=== PATIENT | female | born 1950 | race Caucasian/White ===

== ENCOUNTER 2018-01-14 08:58 | Emergency (ER) | payer MEDICARE, MEDICAID ==
[~2018-01-14] VITALS: Ht 165.1 cm; Wt 82.2 kg
[~2018-01-14 08:58] MED LIST: ASPI81TA52 PO; ATOR10TA87 PO; CALC600T2 PO; CAR30T PO; DILT240C90 PO; ESOM40CA PO; HUM7525 SQ; LANTUS SQ; LANTUS SUBCUT; LEVO50TA67 PO; LISI-600 PO; METF1000 PO; NITR100C6 PO; OXYB5TAB29 PO; PANT-47 PO; PHEN-716 PO
[2018-01-14] MEDS ORDERED: CETI-102 PO (10:19)
[2018-01-14] MEDS ORDERED: BENZ-16 PO (10:19)
[2018-01-14 10:26] VITALS: BP 157/97
== END 2018-01-14 10:28 | disposition home or self-care (01) ==
LOC: ER 08:58
DX: J20.9 Acute bronchitis, unspecified (principal); E78.00 Pure hypercholesterolemia, unspecified; I10 Essential (primary) hypertension; K21.9 Gastro-esophageal reflux disease without esophagitis; E11.9 Type 2 diabetes mellitus without complications; E03.9 Hypothyroidism, unspecified; G89.29 Other chronic pain; Z98.51 Tubal ligation status; Z87.891 Personal history of nicotine dependence; Z56.0 Unemployment, unspecified; Z79.4 Long term (current) use of insulin; Z79.82 Long term (current) use of aspirin
CPT/HCPCS: 71046; 99284

== ENCOUNTER 2018-03-01 04:46 | Outpatient (CLI) | payer MEDICARE, MEDICAID ==
[~2018-03-01 04:46] MED LIST changes: +CETI-102 PO
== END 2018-03-01 23:59 | disposition home or self-care (01) ==
LOC: DIABETIC 04:46
PROVIDERS: ATTEND Family Medicine
DX: E11.65 Type 2 diabetes mellitus with hyperglycemia (principal); I10 Essential (primary) hypertension; K21.9 Gastro-esophageal reflux disease without esophagitis; Z98.890 Other specified postprocedural states
CPT/HCPCS: G0108

== ENCOUNTER 2018-03-28 09:28 | Emergency (ER) | payer MEDICARE, MEDICAID ==
[~2018-03-28] VITALS: Ht 162.6 cm; Wt 92.0 kg
[2018-03-28 09:34] VITALS: BP 150/71
== END 2018-03-28 10:48 | disposition home or self-care (01) ==
LOC: ER 09:28
DX: S93.402A Sprain of unspecified ligament of left ankle, initial encounter (principal); I10 Essential (primary) hypertension; K21.9 Gastro-esophageal reflux disease without esophagitis; E11.9 Type 2 diabetes mellitus without complications; E03.9 Hypothyroidism, unspecified; G89.29 Other chronic pain; Z90.710 Acquired absence of both cervix and uterus; Z98.51 Tubal ligation status; Z56.0 Unemployment, unspecified; Z79.4 Long term (current) use of insulin; E78.00 Pure hypercholesterolemia, unspecified; Z79.82 Long term (current) use of aspirin; Z79.899 Other long term (current) drug therapy; W22.8XXA Striking against or struck by other objects, initial encounter; Y93.01 Activity, walking, marching and hiking; Y92.89 Other specified places as the place of occurrence of the external cause; Y99.8 Other external cause status
CPT/HCPCS: 73610; 99284

== ENCOUNTER 2018-07-28 08:59 | Emergency (ER) | payer MEDICARE, MEDICAID ==
[~2018-07-28] VITALS: Ht 565.3 cm; Wt 80.0 kg
[2018-07-28 09:57] LABS: CLARITY,URINE CLOUDY (Clear); COLOR,URINE YELLOW (Yellow); GLUCOSE, URINE 100 mg/dl (Neg); KETONES,URINE TRACE mg/dl (Neg); LEUKOCYTE ESTERASE ,URINE SMALL (Neg); NITRITES, URINE NEGATIVE (Neg); OCCULT BLOOD,URINE NEGATIVE (Neg); PH,URINE 5.5 (4.8-8.0); PROTEIN,URINE NEGATIVE (Neg); UROBILINOGEN,URINE 0.2 E.U/dL (0.2-1.0)
[2018-07-28 10:06] LABS: BACTERIA,URINE 3+ /HPF (Neg); MUCUS STRANDS FEW /LPF (Neg); SQUAMOUS EPITHELIAL CELL,UR MANY /LPF (FEW); UA COLLECTION TYPE CLN CATCH MIDSTREAM
[2018-07-28 10:09] LABS: RBC,URINE 0-2 /HPF (0-2); WBC,URINE 20-30 /HPF (0-4); YEAST FEW /HPF (NEGATIVE)
[2018-07-28] MEDS ORDERED: NITR100C6 PO (10:35)
[2018-07-28 10:57] VITALS: BP 120/80
== END 2018-07-28 11:01 | disposition home or self-care (01) ==
LOC: ER 09:00
DX: N39.0 Urinary tract infection, site not specified (principal); E78.00 Pure hypercholesterolemia, unspecified; I10 Essential (primary) hypertension; K21.9 Gastro-esophageal reflux disease without esophagitis; E11.9 Type 2 diabetes mellitus without complications; E03.9 Hypothyroidism, unspecified; G89.29 Other chronic pain; Z90.710 Acquired absence of both cervix and uterus; Z98.51 Tubal ligation status; Z98.890 Other specified postprocedural states; Z56.0 Unemployment, unspecified; Z79.82 Long term (current) use of aspirin; Z79.4 Long term (current) use of insulin; Z79.899 Other long term (current) drug therapy
CPT/HCPCS: 81001; 99283

== ENCOUNTER 2018-10-19 00:46 | Outpatient (CLI) | payer MEDICARE, MEDICAID | END 2018-10-19 23:59 | disposition home or self-care (01) | LOC: DIABETIC 00:46 | PROVIDERS: ATTEND Family Medicine | DX: E11.65 Type 2 diabetes mellitus with hyperglycemia (principal); I10 Essential (primary) hypertension; K21.9 Gastro-esophageal reflux disease without esophagitis; Z79.82 Long term (current) use of aspirin; Z79.4 Long term (current) use of insulin; Z79.84 Long term (current) use of oral hypoglycemic drugs | CPT/HCPCS: G0108 ==

== ENCOUNTER 2019-01-11 08:25 | Emergency (ER) | payer MEDICARE, MEDICAID ==
[~2019-01-11] VITALS: Ht 165.1 cm; Wt 91.2 kg
[2019-01-11 09:08] VITALS: BP 168/107
--- NOTE | 2019-01-11 09:09 | NUR ---
AMBULATORY TO ER #1 WITH C/O FLANK PAIN, FREQUENCY, BURNING ON URINATION X 3 DAYS. HX A-FIB, DIABETES, HTN, GERD.
[2019-01-11 09:14] LABS: CLARITY,URINE SLIGHTLY CLOUDY (Clear); COLOR,URINE YELLOW (Yellow); GLUCOSE, URINE 500 mg/dl (Neg); KETONES,URINE NEGATIVE (Neg); LEUKOCYTE ESTERASE ,URINE MODERATE (Neg); NITRITES, URINE POSITIVE (Neg); OCCULT BLOOD,URINE TRACE-LYSED (Neg); PH,URINE 5.5 (4.8-8.0); PROTEIN,URINE NEGATIVE (Neg); UROBILINOGEN,URINE 0.2 E.U/dL (0.2-1.0)
[2019-01-11 09:16] LABS: UA COLLECTION TYPE CLN CATCH MIDSTREAM
[2019-01-11 09:19] LABS: BACTERIA,URINE 4+ /HPF (Neg); RBC,URINE 0-2 /HPF (0-2); SQUAMOUS EPITHELIAL CELL,UR MODERATE /LPF (FEW); WBC CLUMPS,URINE FEW /HPF (NEGATIVE); WBC,URINE TNTC /HPF (0-4)
[2019-01-11] MEDS ORDERED: BACDS PO (09:26)
--- NOTE | 2019-01-11 09:54 | NUR ---
prescription for Bactrim/septra given. patient states that Bactrim/septra will not work. provider notified.
== END 2019-01-11 10:06 | disposition home or self-care (01) ==
LOC: ER 08:26
DX: N39.0 Urinary tract infection, site not specified (principal); E78.00 Pure hypercholesterolemia, unspecified; I10 Essential (primary) hypertension; K21.9 Gastro-esophageal reflux disease without esophagitis; E11.9 Type 2 diabetes mellitus without complications; E03.9 Hypothyroidism, unspecified; G89.29 Other chronic pain; Z90.710 Acquired absence of both cervix and uterus; Z56.0 Unemployment, unspecified; Z98.51 Tubal ligation status; Z79.82 Long term (current) use of aspirin; Z79.4 Long term (current) use of insulin; Z79.84 Long term (current) use of oral hypoglycemic drugs; Z79.899 Other long term (current) drug therapy; Z87.440 Personal history of urinary (tract) infections
CPT/HCPCS: 81001; 87077; 87088; 87186; 99284

== ENCOUNTER 2019-01-18 02:28 | Outpatient (CLI) | payer MEDICARE, MEDICAID ==
[~2019-01-18 02:28] MED LIST changes: +BACDS PO
[2019-01-18] MEDS ORDERED: MIRA50TA PO (13:51)
[2019-01-18] MEDS ORDERED: DILT180C66 PO (13:51)
[2019-01-18] MEDS ORDERED: NITR0.4T48 SL (13:54)
[2019-01-18] MEDS ORDERED: LIRA0.6P2 SQ (13:54)
[2019-01-18] MEDS ORDERED: APIX5TAB3 PO (13:54)
== END 2019-01-18 23:59 | disposition home or self-care (01) ==
LOC: DIABETIC 02:28
PROVIDERS: ATTEND Nurse Practitioner
DX: E11.65 Type 2 diabetes mellitus with hyperglycemia (principal); I10 Essential (primary) hypertension; K21.9 Gastro-esophageal reflux disease without esophagitis; Z79.82 Long term (current) use of aspirin; Z79.4 Long term (current) use of insulin; Z79.84 Long term (current) use of oral hypoglycemic drugs; Z87.891 Personal history of nicotine dependence; Z90.710 Acquired absence of both cervix and uterus
CPT/HCPCS: G0108

== ENCOUNTER 2019-01-18 10:45 | Inpatient (IN) | payer MEDICARE, MEDICAID ==
[~2019-01-18] VITALS: Ht 162.6 cm; Wt 91.4 kg
[2019-01-18 11:16] LABS: BASOPHILS # (AUTO) 0.1 X10'3 (0-0.2); BASOPHILS % (AUTO) 0.5 % (0-1); EOSINOPHILS # (AUTO) 0.2 X10'3 (0-0.9); EOSINOPHILS % (AUTO) 1.2 % (0-6); HEMATOCRIT 34.8 % (35.0-45.0); HEMOGLOBIN 11.1 g/dl (12.0-16.0); LYMPHOCYTES # (AUTO) 4.2 X10'3 (1.1-4.8); LYMPHOCYTES % (AUTO) 34.3 % (21-51); MEAN CORPUSCULAR HEMOGLOBIN 26.4 PG (27.0-31.0); MEAN CORPUSCULAR HGB CONC 31.9 g/dL (33.0-36.5); MEAN CORPUSCULAR VOLUME 82.6 FL (78-98); MEAN PLATELET VOLUME 8.6 FL (7.4-10.4); MONOCYTES # (AUTO) 0.7 X10'3 (0-0.9); MONOCYTES % (AUTO) 5.7 % (2-12); NEUTROPHILS # (AUTO) 7.2 X10'3 (1.8-7.7); NEUTROPHILS % (AUTO) 58.3 % (42-75); PLATELET COUNT 407 X10'3 (140-440); RED BLOOD COUNT 4.22 X10'6 (4.20-5.60); WHITE BLOOD COUNT 12.4 X10'3 (4.5-11.0)
[2019-01-18 11:26] LABS: INR 1.1 INR; PARTIAL THROMBOPLASTIN TIME 27 SECONDS (22-32)
[2019-01-18 11:28] LABS: ALANINE AMINOTRANSFERASE 49 U/L (12-78); ALBUMIN 3.1 G/DL (3.4-5.0); ALBUMIN/GLOBULIN RATIO 0.7 (1.1-1.5); ALKALINE PHOSPHATASE 104 IU/L (46-116); ANION GAP 10 (8-16); ASPARTATE AMINO TRANSFERASE 47 U/L (10-37); BILIRUBIN,TOTAL 0.2 MG/DL (0.1-1.0); BLOOD UREA NITROGEN 14 MG/DL (7-18); BUN/CREATININE RATIO 9.3 (6.6-38.0); CALCIUM 8.5 MG/DL (8.5-10.1); CHLORIDE 100 MMOL/L (99-107); CREATININE 1.51 MG/DL (0.40-0.90); GLUCOSE 336 MG/DL (70-104); POTASSIUM 4.6 MMOL/L (3.5-5.1); SODIUM 131 MMOL/L (135-145); TOTAL CARBON DIOXIDE 20.6 MMOL/L (24-32); TOTAL PROTEIN 7.3 G/DL (6.4-8.2); eGFR 34 ML/MIN
--- NOTE | 2019-01-18 11:45 | NUR ---
ASSUMED CARE OF PT FROM RYAN GARCIA
[2019-01-18] MEDS ORDERED: normal saline 1000ml 1,000 ML IV ONE (11:50)
--- NOTE | 2019-01-18 11:53 | NUR ---
Dr Ramirez at bedside to eval pt, gave verbal order for 2nd EKG, HR 37, pt is receiving 1liter NS w/o to IV left ac, pt is a/o x3, resp even and unlabored, skin p/w/d,
[2019-01-18] MEDS ORDERED: calcium chloride inj. 1,000 MG in normal saline 100ml IV soln 90 ML IV ONE (11:55)
--- NOTE | 2019-01-18 12:06 | NUR ---
[employer] TO BRING MED SOON
--- NOTE | 2019-01-18 12:23 | NUR ---
Dr Ramirez gave verbal order to dc calcium, pt continues to rest quietly on gurmichael
[2019-01-18] MEDS: DOBUTamine-DoBUTrex 500mg/D5W 250 ML IV SCH ×3 (12:36→13:15)
--- NOTE | 2019-01-18 12:43 | NUR ---
dobutamine gtt started at 5mcg/kg/min
--- NOTE | 2019-01-18 13:01 | NUR ---
Dr Camarena gave verbal order to increase dobutamine gtt, HR 36, BP 104/47, pt continues to rest quietly
--- NOTE | 2019-01-18 13:15 | NUR ---
Dr Ramirez aware of HR 37, gave verbal order to increase dobutamine 9mcg/kg/min, Dr Tierney at bedside
--- NOTE | 2019-01-18 13:24 | NUR ---
increased dobutamine gtt to 11mcg/kg/min, HR 38
--- NOTE | 2019-01-18 13:37 | NUR ---
increased dobutamine gtt to 13mcg/kg/min, Dr Ramirez aware, HR remains 39 sinus karine on the monitor
[2019-01-18] MEDS ORDERED: MIRA50TA PO (13:51)
[2019-01-18] MEDS ORDERED: DILT180C66 PO (13:51)
--- NOTE | 2019-01-18 13:53 | NUR ---
Dr Ramirez aware HR 39 to 44, dobutamine gtt remains at 13mcg/kg/min, waiting for hospitalist
[2019-01-18] MEDS ORDERED: NITR0.4T48 SL (13:54)
[2019-01-18] MEDS ORDERED: APIX5TAB3 PO (13:54)
[2019-01-18] MEDS ORDERED: LIRA0.6P2 SQ (13:54)
[2019-01-18] MEDS: normal saline 1000ml 1,000 ML IV SCH (16:02)
[2019-01-18] MEDS ORDERED: potassium Cl 20 mEq SR tablet PO PRN ×2 (16:05)
[2019-01-18] MEDS ORDERED: morphine 4 MG/ML inj SYRINge IV PRN (16:05)
[2019-01-18] MEDS ORDERED: magnesium 2GM in 50ml NS 50 ML IV PRN (16:05)
[2019-01-18] MEDS ORDERED: ondansetron/PF 4mg/2ml inj IV PRN (16:05)
[2019-01-18] MEDS ORDERED: mag hydrox/Alum hydrox/simeth 30ml oral suspension PO PRN (16:05)
[2019-01-18] MEDS ORDERED: acetaminophen 325mg tablet PO PRN (16:05)
[2019-01-18] MEDS ORDERED: potassium Cl 40MEQ/NS 500ml 500 ML IV PRN ×2 (16:05)
[2019-01-18] MEDS ORDERED: magnesium Cl slow-release 64mg tablet PO PRN (16:05)
[2019-01-18] MEDS ORDERED: magnesium 4gm in 100ml NS 100 ML IV PRN (16:05)
[2019-01-18] MEDS ORDERED: glucagon, human recombinant 1mg kit SUBCUT PRN (16:15)
[2019-01-18] MEDS ORDERED: dextrose ORAL solution 15 GM/59 ML bottle PO PRN ×2 (16:15)
[2019-01-18] MEDS ORDERED: MESSAGE TO PHARMACY PO ONE (16:15)
[2019-01-18] MEDS ORDERED: dextrose 50%-water 50ml dispensing syringe IV PRN ×2 (16:15)
[2019-01-18 17:04] LABS: HEMOGLOBIN A1C 8.5 % (4.5-6.2)
--- NOTE | 2019-01-18 17:25 | NUR ---
DR ESPOSITO AWARE HR IN THE 60S, GAVE VERBAL ORDER TO DECREASE DOBUTAMINE TO 10MCG/KG/MIN, PT IS RESTING QUIETLY ON BED, WAITING FOR BED ASSIGNMENT
[2019-01-18] MEDS: insulin Lispro (HumaLOG) vial - multi-dose SQ SCH ×2 (19:39→21:11)
[2019-01-18] MEDS: apixaban 5mg tablet PO SCH (20:04)
[2019-01-18] MEDS: insulin glargine (Lantus) pen - multi-dose SQ SCH (21:15)
[2019-01-19] MEDS: DOBUTamine-DoBUTrex 500mg/D5W 250 ML IV SCH (00:25)
[2019-01-19 02:00] VITALS: BP 152/71
[2019-01-19] MEDS: normal saline 1000ml 1,000 ML IV SCH ×3 (02:02→22:03)
[2019-01-19] MEDS ORDERED: morphine 2 MG/ML inj. syringe IV PRN (02:54)
[2019-01-19 05:24] LABS: BASOPHILS % (AUTO) 0.3 % (0-1); EOSINOPHILS # (AUTO) 0.1 X10'3 (0-0.9); EOSINOPHILS % (AUTO) 0.9 % (0-6); HEMATOCRIT 31.6 % (35.0-45.0); HEMOGLOBIN 10.7 g/dl (12.0-16.0); LYMPHOCYTES # (AUTO) 2.7 X10'3 (1.1-4.8); LYMPHOCYTES % (AUTO) 29.5 % (21-51); MEAN CORPUSCULAR HEMOGLOBIN 27.1 PG (27.0-31.0); MEAN CORPUSCULAR HGB CONC 33.8 g/dL (33.0-36.5); MEAN CORPUSCULAR VOLUME 80.2 FL (78-98); MEAN PLATELET VOLUME 8.5 FL (7.4-10.4); MONOCYTES # (AUTO) 0.9 X10'3 (0-0.9); MONOCYTES % (AUTO) 9.6 % (2-12); NEUTROPHILS # (AUTO) 5.5 X10'3 (1.8-7.7); NEUTROPHILS % (AUTO) 59.7 % (42-75); PLATELET COUNT 303 X10'3 (140-440); RED BLOOD COUNT 3.94 X10'6 (4.20-5.60); WHITE BLOOD COUNT 9.3 X10'3 (4.5-11.0)
[2019-01-19 05:31] LABS: ALANINE AMINOTRANSFERASE 49 U/L (12-78); ALBUMIN/GLOBULIN RATIO 0.7 (1.1-1.5); ALKALINE PHOSPHATASE 96 IU/L (46-116); ANION GAP 12 (8-16); ASPARTATE AMINO TRANSFERASE 28 U/L (10-37); BILIRUBIN,TOTAL 0.3 MG/DL (0.1-1.0); BLOOD UREA NITROGEN 14 MG/DL (7-18); BUN/CREATININE RATIO 13.2 (6.6-38.0); CALCIUM 8.9 MG/DL (8.5-10.1); CHLORIDE 105 MMOL/L (99-107); CREATININE 1.06 MG/DL (0.40-0.90); GLUCOSE 208 MG/DL (70-104); MAGNESIUM 1.6 MG/DL (1.5-2.4); POTASSIUM 3.9 MMOL/L (3.5-5.1); SODIUM 139 MMOL/L (135-145); TOTAL CARBON DIOXIDE 22.5 MMOL/L (24-32); TOTAL PROTEIN 7.1 G/DL (6.4-8.2); eGFR 51 ML/MIN
--- NOTE | 2019-01-19 06:26 | NUR ---
Problems reprioritized. Patient report given, questions answered & plan of care reviewed with Basil GARCIA.
[2019-01-19 07:37] VITALS: BP 158/58
--- NOTE | 2019-01-19 07:40 | NUR ---
Patient in room PCU 3026. I have received report from Jose GARCIA and had the opportunity to ask questions and assume patient care.
[2019-01-19] MEDS: K and/or MAG REPLACEMENT MC SCH (08:00)
[2019-01-19] MEDS: insulin Lispro (HumaLOG) vial - multi-dose SQ SCH ×3 (09:24→18:52)
[2019-01-19] MEDS: pantoprazole 40mg Tablet.DR PO SCH (09:26)
[2019-01-19] MEDS: atorvastatin 10mg tablet PO SCH (09:27)
[2019-01-19] MEDS: apixaban 5mg tablet PO SCH ×2 (09:29→20:03)
[2019-01-19] MEDS: calcium carbonate 500mg tablet PO SCH (09:29)
[2019-01-19] MEDS: levoTHYROXINE 25mcg tablet PO SCH (09:30)
--- NOTE | 2019-01-19 11:41 | NUR ---
[facility] [employer] CALLED TO OBTAIN A LIST OF NEW MEDICATIONS THE GAVE TO PT ON 01/12/19. DR. GÓMEZ PAGED WITH LIST @ 11:43.
[2019-01-19 11:47] VITALS: BP 138/71
[2019-01-19 15:15] VITALS: BP 124/89
--- NOTE | 2019-01-19 15:46 | NUR ---
DM consult: Pt with A1c 8.5 seen at bedside. Pt states she sees an MD at [facility] q 3 months, takes her meds per rx without difficulties, and has a CGM of which she checks her BG levels 3-4 times a day. Pt states she was previously taking Metformin however it was causing her to have diarrhea so her MD took her off of it and added Victoza to DM meds. Pt given written DM ed with referral to outpatient DM class and RD contact information. Pt with no questions at this time. Pt admit with bradycardia. Pt currently on a heart healthy diet with documented PO intake 100% meeting nutrient needs. Pt would benefit from addition of CHO controlled diet d/t hx of T2DM. Pt endorses a good appetite and denies any food allergies, difficulty chewing/swallowing, or constipation/diarrhea. LBM 01/19 per pt. No edema or wounds. Will continue to follow. Recommendations: 1) Continue heart healthy diet with the addition of CHO controlled 2) Wt per rx Addendum: 01/19/19 at [address] Amended: Links added.
[2019-01-19] MEDS: diltiazem CD 180mg cap (once-daily) PO SCH (17:21)
--- NOTE | 2019-01-19 18:26 | NUR ---
Problems reprioritized. Patient report given, questions answered & plan of care reviewed with MANUEL GARCIA AND ADIS GARCIA.
[2019-01-19 19:00] VITALS: BP 161/78
[2019-01-19] MEDS: insulin glargine (Lantus) pen - multi-dose SQ SCH (21:56)
[2019-01-19 23:00] VITALS: BP 150/51
[2019-01-20 03:00] VITALS: BP 150/74
[2019-01-20 06:00] VITALS: BP 155/81
--- NOTE | 2019-01-20 06:20 | NUR ---
Patient in room PCU 3026. I have received report from HIRO "Aristeo" and had the opportunity to ask questions and assume patient care.
[2019-01-20 06:45] LABS: BASOPHILS % (AUTO) 0.7 % (0-1); EOSINOPHILS # (AUTO) 0.1 X10'3 (0-0.9); EOSINOPHILS % (AUTO) 1.9 % (0-6); HEMOGLOBIN 11.9 g/dl (12.0-16.0); LYMPHOCYTES % (AUTO) 45.7 % (21-51); MEAN CORPUSCULAR HEMOGLOBIN 26.2 PG (27.0-31.0); MEAN CORPUSCULAR HGB CONC 32.2 g/dL (33.0-36.5); MEAN CORPUSCULAR VOLUME 81.6 FL (78-98); MEAN PLATELET VOLUME 8.4 FL (7.4-10.4); MONOCYTES # (AUTO) 0.4 X10'3 (0-0.9); MONOCYTES % (AUTO) 6.2 % (2-12); NEUTROPHILS % (AUTO) 45.5 % (42-75); PLATELET COUNT 333 X10'3 (140-440); RED BLOOD COUNT 4.54 X10'6 (4.20-5.60); WHITE BLOOD COUNT 6.6 X10'3 (4.5-11.0)
[2019-01-20 06:59] LABS: ALANINE AMINOTRANSFERASE 45 U/L (12-78); ALBUMIN 3.2 G/DL (3.4-5.0); ALBUMIN/GLOBULIN RATIO 0.7 (1.1-1.5); ALKALINE PHOSPHATASE 103 IU/L (46-116); ANION GAP 9 (8-16); ASPARTATE AMINO TRANSFERASE 23 U/L (10-37); BILIRUBIN,TOTAL 0.4 MG/DL (0.1-1.0); BLOOD UREA NITROGEN 14 MG/DL (7-18); BUN/CREATININE RATIO 15.9 (6.6-38.0); CALCIUM 8.6 MG/DL (8.5-10.1); CHLORIDE 106 MMOL/L (99-107); CREATININE 0.88 MG/DL (0.40-0.90); GLUCOSE 210 MG/DL (70-104); MAGNESIUM 1.6 MG/DL (1.5-2.4); POTASSIUM 4.2 MMOL/L (3.5-5.1); SODIUM 140 MMOL/L (135-145); TOTAL CARBON DIOXIDE 24.9 MMOL/L (24-32); TOTAL PROTEIN 7.6 G/DL (6.4-8.2); eGFR 64 ML/MIN
[2019-01-20] MEDS: K and/or MAG REPLACEMENT MC SCH (08:00)
[2019-01-20] MEDS: normal saline 1000ml 1,000 ML IV SCH (08:02)
[2019-01-20] MEDS ORDERED: DILT180C66 PO (09:40)
[2019-01-20] MEDS: apixaban 5mg tablet PO SCH (09:45)
[2019-01-20] MEDS: diltiazem CD 180mg cap (once-daily) PO SCH (09:46)
[2019-01-20] MEDS: levoTHYROXINE 25mcg tablet PO SCH (09:46)
[2019-01-20] MEDS: calcium carbonate 500mg tablet PO SCH (09:46)
[2019-01-20] MEDS: atorvastatin 10mg tablet PO SCH (09:46)
[2019-01-20] MEDS: pantoprazole 40mg Tablet.DR PO SCH (09:57)
[2019-01-20] MEDS: insulin Lispro (HumaLOG) vial - multi-dose SQ SCH (09:57)
--- NOTE | 2019-01-20 12:05 | NUR ---
PATIENT DISCHARGED AT THIS TIME. HEADING TO [facility] FOR OUTPATIENT CARDIOVERSION. ESCORTED OUT VIA [facility] STAFF PER PRIVATE VEHICLE WITH DAUGHTER IN LAW. DISCUSSED DISCHARGED INSTRUCTIONS, VERBALIZED UNDERSTANDING, QUESTIONS ANSWERED. DC'D TELE, IV INTACT AND SECURED FOR [facility] USE AND WRAPPED IN [place]. PATIENT EAGER TO DISCHARGE. BELONGINGS RETURNED. V.S.S.
== END 2019-01-20 12:05 | disposition home or self-care (01) | DRG 917 ==
LOC: ER 10:45 → ED HOLD 16:02 → PCU 3S 01-19 02:49
PROVIDERS: ADMIT Internal Medicine; ATTEND Family Medicine
DX: T46.1X1A Poisoning by calcium-channel blockers, accidental (unintentional), initial encounter (principal); N17.0 Acute kidney failure with tubular necrosis; R00.1 Bradycardia, unspecified; I48.2 Chronic atrial fibrillation; T44.7X1A Poisoning by beta-adrenoreceptor antagonists, accidental (unintentional), initial encounter; I95.9 Hypotension, unspecified; E11.9 Type 2 diabetes mellitus without complications; E03.9 Hypothyroidism, unspecified; E78.00 Pure hypercholesterolemia, unspecified; E78.5 Hyperlipidemia, unspecified; G89.29 Other chronic pain; K21.9 Gastro-esophageal reflux disease without esophagitis; M54.9 Dorsalgia, unspecified; Z60.2 Problems related to living alone; R29.6 Repeated falls; Z56.0 Unemployment, unspecified; Z98.51 Tubal ligation status; Z90.710 Acquired absence of both cervix and uterus; Z79.890 Hormone replacement therapy; Z79.899 Other long term (current) drug therapy; Z79.01 Long term (current) use of anticoagulants; Z79.4 Long term (current) use of insulin; Y92.9 Unspecified place or not applicable
CPT/HCPCS: 36415; 71045; 80053; 82948; 83036; 83735; 84484; 85025; 85610; 85730; 92616; 93005; 93306; 97161; 97530; 99291; G0378; J1250; J1815; J7030

== ENCOUNTER 2019-03-15 21:04 | Emergency (ER) | payer MEDICARE, MEDICAID ==
[~2019-03-15] VITALS: Ht 165.1 cm; Wt 94.8 kg
[~2019-03-15 21:04] MED LIST changes: +APIX5TAB3 PO; -ASPI81TA52 PO; -BACDS PO; -CAR30T PO; -CETI-102 PO; +DILT180C66 PO; -DILT240C90 PO; -ESOM40CA PO; +LIRA0.6P2 SQ; -METF1000 PO; +MIRA50TA PO; +NITR0.4T48 SL; -NITR100C6 PO; -OXYB5TAB29 PO; -PHEN-716 PO
[2019-03-15] MEDS ORDERED: ondansetron/PF 4mg/2ml inj IV ONE (21:25)
[2019-03-15] MEDS ORDERED: morphine 4 MG/ML inj SYRINge IV ONE (21:25)
--- NOTE | 2019-03-15 21:54 | NUR ---
RETURNED FROM [facility].
--- NOTE | 2019-03-15 22:03 | NUR ---
PT'S SON, SHWETA , CALLING FOR UPDATED. PT OK WITH HIM GETTING ANY MEDICAL INFORMATION. PT NOW TALKING WITH SON.
[2019-03-15] MEDS ORDERED: HYDROcodone/acetaminophen 5mg/325mg tablet PO ONE (22:15)
[2019-03-15 22:27] VITALS: BP 147/115
== END 2019-03-15 22:36 | disposition home or self-care (01) ==
LOC: ER 21:04
DX: M25.461 Effusion, right knee (principal); I48.91 Unspecified atrial fibrillation; E78.00 Pure hypercholesterolemia, unspecified; I10 Essential (primary) hypertension; K21.9 Gastro-esophageal reflux disease without esophagitis; E11.9 Type 2 diabetes mellitus without complications; E03.9 Hypothyroidism, unspecified; G89.29 Other chronic pain; Z56.0 Unemployment, unspecified; Z90.710 Acquired absence of both cervix and uterus; Z98.51 Tubal ligation status; Z88.8 Allergy status to other drugs, medicaments and biological substances; Z79.899 Other long term (current) drug therapy; Z79.4 Long term (current) use of insulin; X50.1XXA Overexertion from prolonged static or awkward postures, initial encounter; Y93.89 Activity, other specified; Y92.89 Other specified places as the place of occurrence of the external cause; Y99.9 Unspecified external cause status
CPT/HCPCS: 29505; 73564; 82948; 96374; 96375; 99284; J2270; J2405

== ENCOUNTER 2019-03-29 14:22 | Outpatient (CLI) | payer MEDICARE, MEDICAID ==
[2019-03-29 09:46] VITALS: BP 137/83
== END 2019-03-29 15:15 | disposition home or self-care (01) ==
LOC: ORTHO 14:22
PROVIDERS: ATTEND Orthopaedic Surgery
DX: M23.8X1 Other internal derangements of right knee (principal)
CPT/HCPCS: 99213

== ENCOUNTER 2019-04-18 04:39 | Outpatient (CLI) | payer MEDICARE, MEDICAID | END 2019-04-18 23:59 | disposition home or self-care (01) | LOC: DIABETIC 04:39 | PROVIDERS: ATTEND Family Medicine | DX: E11.69 Type 2 diabetes mellitus with other specified complication (principal); Z79.82 Long term (current) use of aspirin; Z79.4 Long term (current) use of insulin; Z79.899 Other long term (current) drug therapy | CPT/HCPCS: G0108 ==

== ENCOUNTER 2019-05-26 07:59 | Emergency (ER) | payer MEDICARE, MEDICAID ==
[~2019-05-26] VITALS: Ht 165.1 cm; Wt 92.0 kg
[2019-05-26 08:27] LABS: CLARITY,URINE CLOUDY (Clear); COLOR,URINE YELLOW (Yellow); GLUCOSE, URINE 250 mg/dl (Neg); KETONES,URINE TRACE mg/dl (Neg); LEUKOCYTE ESTERASE ,URINE LARGE (Neg); NITRITES, URINE NEGATIVE (Neg); OCCULT BLOOD,URINE MODERATE (Neg); PH,URINE 5.5 (4.8-8.0); PROTEIN,URINE TRACE mg/dl (Neg); UROBILINOGEN,URINE 0.2 E.U/dL (0.2-1.0)
[2019-05-26 08:29] LABS: UA COLLECTION TYPE CLN CATCH MIDSTREAM
[2019-05-26 08:33] LABS: BACTERIA,URINE 3+ /HPF (Neg); MUCUS STRANDS NONE SEEN /LPF (Neg); RENAL CELLS, URINE FEW /HPF; SQUAMOUS EPITHELIAL CELL,UR MODERATE /LPF (FEW); WBC CLUMPS,URINE MODERATE /HPF (NEGATIVE); WBC,URINE TNTC /HPF (0-4)
[2019-05-26] MEDS ORDERED: CIPR-259 PO (09:19)
[2019-05-26] MEDS ORDERED: CefTRIAXone 1000mg IM Kit (w/lidocaine diluent) IM ONE (09:20)
[2019-05-26 10:09] VITALS: BP 134/78
== END 2019-05-26 10:10 | disposition home or self-care (01) ==
LOC: ER 07:59
DX: N12 Tubulo-interstitial nephritis, not specified as acute or chronic (principal); I48.91 Unspecified atrial fibrillation; E78.00 Pure hypercholesterolemia, unspecified; I10 Essential (primary) hypertension; K21.9 Gastro-esophageal reflux disease without esophagitis; E11.9 Type 2 diabetes mellitus without complications; E03.9 Hypothyroidism, unspecified; G89.29 Other chronic pain; Z90.710 Acquired absence of both cervix and uterus; Z98.51 Tubal ligation status; Z98.890 Other specified postprocedural states; Z56.0 Unemployment, unspecified; Z88.8 Allergy status to other drugs, medicaments and biological substances; Z79.01 Long term (current) use of anticoagulants; Z79.899 Other long term (current) drug therapy; Z79.2 Long term (current) use of antibiotics; Z79.4 Long term (current) use of insulin
CPT/HCPCS: 81001; 87077; 87088; 87186; 96372; 99283; J0696

== ENCOUNTER 2019-09-11 07:59 | Emergency (ER) | payer MEDICARE, MEDICAID ==
[~2019-09-11] VITALS: Ht 162.6 cm; Wt 91.7 kg
[2019-09-11 08:05] VITALS: BP 146/60
[2019-09-11 08:22] LABS: CLARITY,URINE TURBID (Clear); COLOR,URINE YELLOW (Yellow); GLUCOSE, URINE NEGATIVE (Neg); KETONES,URINE NEGATIVE (Neg); LEUKOCYTE ESTERASE ,URINE MODERATE (Neg); NITRITES, URINE NEGATIVE (Neg); OCCULT BLOOD,URINE SMALL (Neg); PROTEIN,URINE NEGATIVE (Neg); UA COLLECTION TYPE CLN CATCH MIDSTREAM; UROBILINOGEN,URINE 0.2 E.U/dL (0.2-1.0)
[2019-09-11 08:28] LABS: SQUAMOUS EPITHELIAL CELL,UR MANY /LPF (FEW)
[2019-09-11 08:29] LABS: BACTERIA,URINE 4+ /HPF (Neg); RBC,URINE 0-2 /HPF (0-2); WBC,URINE TNTC /HPF (0-4)
[2019-09-11] MEDS ORDERED: CEPH500C5 PO (08:30)
[2019-09-11 09:07] LABS: CLARITY,URINE CLOUDY (Clear); COLOR,URINE YELLOW (Yellow); GLUCOSE, URINE NEGATIVE (Neg); KETONES,URINE TRACE mg/dl (Neg); LEUKOCYTE ESTERASE ,URINE MODERATE (Neg); NITRITES, URINE POSITIVE (Neg); OCCULT BLOOD,URINE SMALL (Neg); PROTEIN,URINE NEGATIVE (Neg); UROBILINOGEN,URINE 0.2 E.U/dL (0.2-1.0)
--- NOTE | 2019-09-11 09:07 | NUR ---
PT NEEDS ANOTHER URINE SAMPLE. PER LAB UNABLE TO CULTURE. INSTRUCT PT TO USE WIPES TO PRE CLEAN BEFORE VOIDING. ANOTHER SAMPLE COLLECTED AND SENT TO LAB.
[2019-09-11 09:14] LABS: UA COLLECTION TYPE CLN CATCH MIDSTREAM
[2019-09-11 09:15] LABS: SQUAMOUS EPITHELIAL CELL,UR MANY /LPF (FEW)
[2019-09-11 09:16] LABS: BACTERIA,URINE 4+ /HPF (Neg); RBC,URINE 0-2 /HPF (0-2); WBC CLUMPS,URINE MANY /HPF (NEGATIVE); WBC,URINE 50-100 /HPF (0-4)
== END 2019-09-11 09:59 | disposition home or self-care (01) ==
LOC: ER 07:59
DX: N39.0 Urinary tract infection, site not specified (principal); M54.5 Low back pain; I48.91 Unspecified atrial fibrillation; E78.00 Pure hypercholesterolemia, unspecified; I10 Essential (primary) hypertension; K21.9 Gastro-esophageal reflux disease without esophagitis; E11.9 Type 2 diabetes mellitus without complications; E03.9 Hypothyroidism, unspecified; G89.29 Other chronic pain; Z90.710 Acquired absence of both cervix and uterus; Z98.51 Tubal ligation status; Z56.0 Unemployment, unspecified; Z88.8 Allergy status to other drugs, medicaments and biological substances; Z79.899 Other long term (current) drug therapy; Z79.4 Long term (current) use of insulin
CPT/HCPCS: 81001; 99283

== ENCOUNTER 2019-10-10 03:38 | Outpatient (CLI) | payer MEDICARE, MEDICAID ==
[~2019-10-10 03:38] MED LIST changes: +CEPH500C5 PO
== END 2019-10-10 23:59 | disposition home or self-care (01) ==
LOC: DIABETIC 03:38
PROVIDERS: ATTEND Family Medicine
DX: E11.65 Type 2 diabetes mellitus with hyperglycemia (principal); I10 Essential (primary) hypertension; Z79.4 Long term (current) use of insulin; Z79.82 Long term (current) use of aspirin; Z79.899 Other long term (current) drug therapy
CPT/HCPCS: G0108

== ENCOUNTER 2020-01-09 04:06 | Outpatient (CLI) | payer MEDICARE, MEDICAID | END 2020-01-09 23:59 | disposition home or self-care (01) | LOC: DIABETIC 04:06 | PROVIDERS: ATTEND Family Medicine | DX: E11.65 Type 2 diabetes mellitus with hyperglycemia (principal) | CPT/HCPCS: G0108 ==

== ENCOUNTER 2020-11-13 08:26 | Emergency (ER) | payer MEDICARE, MEDICAID ==
[~2020-11-13] VITALS: Ht 162.6 cm; Wt 93.9 kg
[~2020-11-13 08:26] MED LIST changes: -CEPH500C5 PO
[2020-11-13 08:39] VITALS: BP 139/61
[2020-11-13] MEDS ORDERED: cephalexin 250mg capsule PO ONE (09:05)
[2020-11-13] MEDS ORDERED: phenazopyridine 100mg tablet PO ONE (09:05)
[2020-11-13] MEDS ORDERED: CEPH500C5 PO (09:09)
[2020-11-13] MEDS ORDERED: PHEN-786 PO (09:09)
[2020-11-13 09:13] LABS: CLARITY,URINE CLOUDY (Clear); COLOR,URINE YELLOW (Yellow); GLUCOSE, URINE NEGATIVE (Neg); KETONES,URINE NEGATIVE (Neg); LEUKOCYTE ESTERASE ,URINE NEGATIVE (Neg); NITRITES, URINE POSITIVE (Neg); OCCULT BLOOD,URINE SMALL (Neg); PH,URINE 5.5 (4.8-8.0); PROTEIN,URINE NEGATIVE (Neg); UROBILINOGEN,URINE 0.2 E.U/dL (0.2-1.0)
[2020-11-13 09:14] LABS: UA COLLECTION TYPE CLN CATCH MIDSTREAM
[2020-11-13 09:22] LABS: BACTERIA,URINE 3+ /HPF (Neg); SQUAMOUS EPITHELIAL CELL,UR MANY /LPF (FEW)
[2020-11-13 09:24] LABS: RBC,URINE 0-2 /HPF (0-2); WBC CLUMPS,URINE MODERATE /HPF (NEGATIVE)
== END 2020-11-13 09:26 | disposition home or self-care (01) ==
LOC: ER 08:27
DX: N39.0 Urinary tract infection, site not specified (principal); R31.9 Hematuria, unspecified; I48.91 Unspecified atrial fibrillation; E78.00 Pure hypercholesterolemia, unspecified; I10 Essential (primary) hypertension; K21.9 Gastro-esophageal reflux disease without esophagitis; E11.9 Type 2 diabetes mellitus without complications; E03.9 Hypothyroidism, unspecified; G89.29 Other chronic pain; Z87.440 Personal history of urinary (tract) infections; Z90.710 Acquired absence of both cervix and uterus; Z98.51 Tubal ligation status; Z98.890 Other specified postprocedural states; Z56.0 Unemployment, unspecified; Z88.8 Allergy status to other drugs, medicaments and biological substances; Z79.2 Long term (current) use of antibiotics; Z79.4 Long term (current) use of insulin; Z79.899 Other long term (current) drug therapy
CPT/HCPCS: 81001; 82948; 99283

== ENCOUNTER 2021-04-11 09:09 | Emergency (ER) | payer MEDICARE, MEDICAID ==
[~2021-04-11] VITALS: Ht 162.6 cm; Wt 95.7 kg
[~2021-04-11 09:09] MED LIST changes: +CEPH-585 PO; -LISI-600 PO; +LISI20TA28 PO; +PHEN-786 PO
[2021-04-11 09:27] VITALS: BP 172/81
[2021-04-11] MEDS ORDERED: TETanus/Pertussis (Acell)/Diphther VAC/PF (Tdap-Adult) 0.5ml syringe IMVAC ONE (10:20)
== END 2021-04-11 11:07 | disposition home or self-care (01) ==
LOC: ER 09:10
DX: S41.101A Unspecified open wound of right upper arm, initial encounter (principal); I48.91 Unspecified atrial fibrillation; E78.00 Pure hypercholesterolemia, unspecified; I10 Essential (primary) hypertension; K21.9 Gastro-esophageal reflux disease without esophagitis; E11.9 Type 2 diabetes mellitus without complications; E03.9 Hypothyroidism, unspecified; G89.29 Other chronic pain; Z20.3 Contact with and (suspected) exposure to rabies; Z87.440 Personal history of urinary (tract) infections; Z90.710 Acquired absence of both cervix and uterus; Z98.51 Tubal ligation status; Z98.890 Other specified postprocedural states; Z56.0 Unemployment, unspecified; Z88.8 Allergy status to other drugs, medicaments and biological substances; Z79.2 Long term (current) use of antibiotics; Z79.4 Long term (current) use of insulin; Z79.899 Other long term (current) drug therapy; X58.XXXA Exposure to other specified factors, initial encounter; Y93.89 Activity, other specified; Y92.89 Other specified places as the place of occurrence of the external cause; Y99.8 Other external cause status
CPT/HCPCS: 90471; 90715; 99284

== ENCOUNTER 2022-02-09 08:31 | Emergency (ER) | payer MEDICARE, MEDICAID ==
[~2022-02-09] VITALS: Ht 162.6 cm; Wt 100.0 kg
[~2022-02-09 08:31] MED LIST changes: -CEPH-585 PO
[2022-02-09 09:04] LABS: CLARITY,URINE CLOUDY (Clear); COLOR,URINE YELLOW (Yellow); GLUCOSE, URINE NEGATIVE (Neg); KETONES,URINE NEGATIVE (Neg); LEUKOCYTE ESTERASE ,URINE MODERATE (Neg); NITRITES, URINE NEGATIVE (Neg); OCCULT BLOOD,URINE MODERATE (Neg); PROTEIN,URINE TRACE mg/dl (Neg); UROBILINOGEN,URINE 0.2 E.U/dL (0.2-1.0)
[2022-02-09 09:09] LABS: UA COLLECTION TYPE CLN CATCH MIDSTREAM
[2022-02-09 09:10] LABS: SQUAMOUS EPITHELIAL CELL,UR MODERATE /LPF (FEW)
[2022-02-09 09:11] LABS: WBC CLUMPS,URINE MANY /HPF (NEGATIVE); WBC,URINE 50-100 /HPF (0-4)
[2022-02-09 09:12] LABS: BACTERIA,URINE 2+ /HPF (Neg)
[2022-02-09] MEDS ORDERED: cephalexin 500mg capsule PO ONE (09:30)
[2022-02-09] MEDS ORDERED: CEPH500C2 PO ×2 (09:34→09:59)
[2022-02-09 09:57] VITALS: BP 198/84
== END 2022-02-09 09:59 | disposition home or self-care (01) ==
LOC: ER 08:32
DX: N39.0 Urinary tract infection, site not specified (principal); E11.9 Type 2 diabetes mellitus without complications; I48.91 Unspecified atrial fibrillation; E78.00 Pure hypercholesterolemia, unspecified; I10 Essential (primary) hypertension; K21.9 Gastro-esophageal reflux disease without esophagitis; E03.9 Hypothyroidism, unspecified; G89.29 Other chronic pain; Z87.440 Personal history of urinary (tract) infections; Z90.710 Acquired absence of both cervix and uterus; Z98.51 Tubal ligation status; Z56.0 Unemployment, unspecified; Z88.8 Allergy status to other drugs, medicaments and biological substances; Z79.2 Long term (current) use of antibiotics; Z79.4 Long term (current) use of insulin; Z79.899 Other long term (current) drug therapy
CPT/HCPCS: 81001; 87088; 87186; 99283

== ENCOUNTER 2022-03-23 09:28 | Emergency (ER) | payer MEDICARE, MEDICAID ==
[~2022-03-23] VITALS: Ht 162.6 cm; Wt 101.8 kg
[2022-03-23 09:32] VITALS: BP 185/72
[2022-03-23] MEDS ORDERED: HYDROcodone/acetaminophen 5mg/325mg tablet PO ONE (11:45)
--- NOTE | 2022-03-23 11:52 | NUR ---
pt to xray
--- NOTE | 2022-03-23 12:23 | NUR ---
called pts daughter and message left as pt requested she be called to pick her up so she did not have to ride the bus
== END 2022-03-23 14:19 | disposition home or self-care (01) ==
LOC: ER 09:29
DX: S93.401A Sprain of unspecified ligament of right ankle, initial encounter (principal); S80.211A Abrasion, right knee, initial encounter; M25.571 Pain in right ankle and joints of right foot; M25.572 Pain in left ankle and joints of left foot; I48.91 Unspecified atrial fibrillation; E78.00 Pure hypercholesterolemia, unspecified; I10 Essential (primary) hypertension; K21.9 Gastro-esophageal reflux disease without esophagitis; E11.9 Type 2 diabetes mellitus without complications; E03.9 Hypothyroidism, unspecified; G89.29 Other chronic pain; Z87.440 Personal history of urinary (tract) infections; Z90.710 Acquired absence of both cervix and uterus; Z98.51 Tubal ligation status; Z98.890 Other specified postprocedural states; Z56.0 Unemployment, unspecified; Z88.8 Allergy status to other drugs, medicaments and biological substances; Z79.4 Long term (current) use of insulin; Z79.899 Other long term (current) drug therapy; W19.XXXA Unspecified fall, initial encounter; Y93.89 Activity, other specified; Y92.89 Other specified places as the place of occurrence of the external cause; Y99.8 Other external cause status
CPT/HCPCS: 73564; 73610; 99284

== ENCOUNTER 2023-01-29 08:07 | Emergency (ER) | payer MEDICARE, MEDICAID ==
[~2023-01-29] VITALS: Ht 165.1 cm; Wt 100.0 kg
[2023-01-29 08:47] LABS: BASOPHILS % (AUTO) 0.4 % (0-1); EOSINOPHILS # (AUTO) 0.1 X10'3 (0-0.9); EOSINOPHILS % (AUTO) 0.9 % (0-6); HEMATOCRIT 34.6 % (35.0-45.0); HEMOGLOBIN 11.6 g/dl (12.0-16.0); LYMPHOCYTES # (AUTO) 3.1 X10'3 (1.1-4.8); LYMPHOCYTES % (AUTO) 37.6 % (21-51); MEAN CORPUSCULAR HEMOGLOBIN 28.4 PG (27.0-31.0); MEAN CORPUSCULAR HGB CONC 33.4 g/dL (33.0-36.5); MEAN CORPUSCULAR VOLUME 85.1 FL (78-98); MEAN PLATELET VOLUME 7.3 FL (7.4-10.4); MONOCYTES # (AUTO) 0.6 X10'3 (0-0.9); MONOCYTES % (AUTO) 7.5 % (2-12); NEUTROPHILS # (AUTO) 4.4 X10'3 (1.8-7.7); NEUTROPHILS % (AUTO) 53.6 % (42-75); PLATELET COUNT 337 X10'3 (140-440); RED BLOOD COUNT 4.07 X10'6 (4.20-5.60); RED CELL DISTRIBUTION WIDTH 15.2 % (11.5-14.5); WHITE BLOOD COUNT 8.2 X10'3 (4.5-11.0)
[2023-01-29 09:07] LABS: ALANINE AMINOTRANSFERASE 14 U/L (12-78); ALBUMIN 3.3 G/DL (3.4-5.0); ALBUMIN/GLOBULIN RATIO 0.6 (1.1-1.5); ALKALINE PHOSPHATASE 119 IU/L (46-116); ANION GAP 6 (8-16); ASPARTATE AMINO TRANSFERASE 20 U/L (10-37); BILIRUBIN,TOTAL 0.4 MG/DL (0.1-1.0); BLOOD UREA NITROGEN 13 MG/DL (7-18); BUN/CREATININE RATIO 12.9 (10.0-20.0); CALCIUM 8.4 MG/DL (8.5-10.1); CHLORIDE 99 MMOL/L (99-107); CREATININE 1.01 MG/DL (0.40-0.90); GLUCOSE 102 MG/DL (70-104); LIPASE 101 U/L (73-393); POTASSIUM 3.8 MMOL/L (3.5-5.1); SODIUM 134 MMOL/L (135-145); TOTAL CARBON DIOXIDE 29.4 MMOL/L (24-32); TOTAL PROTEIN 8.4 G/DL (6.4-8.2); eGFR 54 ML/MIN
[2023-01-29 09:09] LABS: CLARITY,URINE CLOUDY (Clear); COLOR,URINE YELLOW (Yellow); GLUCOSE, URINE NEGATIVE (Neg); KETONES,URINE NEGATIVE (Neg); LEUKOCYTE ESTERASE ,URINE SMALL (Neg); NITRITES, URINE NEGATIVE (Neg); OCCULT BLOOD,URINE SMALL (Neg); PH,URINE 5.5 (4.8-8.0); PROTEIN,URINE NEGATIVE (Neg); UROBILINOGEN,URINE 0.2 E.U/dL (0.2-1.0)
[2023-01-29 09:15] LABS: UA COLLECTION TYPE CLN CATCH MIDSTREAM
[2023-01-29 09:16] LABS: BACTERIA,URINE 3+ /HPF (Neg); MUCUS STRANDS NONE SEEN /LPF (Neg); RBC,URINE 0-2 /HPF (0-2); SQUAMOUS EPITHELIAL CELL,UR NONE SEEN /LPF (FEW); TRANSITIONAL EPI CELLS,URINE FEW /HPF; WBC CLUMPS,URINE MODERATE /HPF (NEGATIVE); WBC,URINE 50-100 /HPF (0-4)
[2023-01-29 10:16] VITALS: BP 166/82
[2023-01-29] MEDS ORDERED: AMOX-580 PO (11:49)
== END 2023-01-29 12:23 | disposition home or self-care (01) ==
LOC: ER 08:08
DX: N39.0 Urinary tract infection, site not specified (principal); M54.59 Other low back pain; I11.0 Hypertensive heart disease with heart failure; E78.00 Pure hypercholesterolemia, unspecified; E03.9 Hypothyroidism, unspecified; G89.29 Other chronic pain; M54.9 Dorsalgia, unspecified; E11.9 Type 2 diabetes mellitus without complications; Z90.49 Acquired absence of other specified parts of digestive tract; Z98.890 Other specified postprocedural states; Z56.0 Unemployment, unspecified; Z88.8 Allergy status to other drugs, medicaments and biological substances; Z79.899 Other long term (current) drug therapy; Z79.1 Long term (current) use of non-steroidal anti-inflammatories (NSAID); Z79.2 Long term (current) use of antibiotics
CPT/HCPCS: 36415; 80053; 81001; 83690; 85025; 87088; 99284

== ENCOUNTER 2023-05-05 19:14 | Emergency (ER) | payer MEDICARE, MEDICAID ==
[~2023-05-05] VITALS: Ht 162.6 cm; Wt 99.3 kg
[2023-05-05 19:20] VITALS: BP_SYST 92
[2023-05-05] MEDS ORDERED: bacitracin 15gm ointment TP ONE (20:30)
== END 2023-05-05 20:37 | disposition home or self-care (01) ==
LOC: ER 19:15
DX: S51.812A Laceration without foreign body of left forearm, initial encounter (principal); E78.00 Pure hypercholesterolemia, unspecified; I10 Essential (primary) hypertension; K21.9 Gastro-esophageal reflux disease without esophagitis; E11.9 Type 2 diabetes mellitus without complications; E03.9 Hypothyroidism, unspecified; G89.29 Other chronic pain; M54.9 Dorsalgia, unspecified; X58.XXXA Exposure to other specified factors, initial encounter; Y93.89 Activity, other specified; Y92.89 Other specified places as the place of occurrence of the external cause; Y99.8 Other external cause status
CPT/HCPCS: 99282; A6222; A6449

== ENCOUNTER 2023-06-29 07:00 | Emergency (ER) | payer MEDICARE, MEDICAID ==
[~2023-06-29] VITALS: Ht 162.6 cm; Wt 97.0 kg
--- NOTE | 2023-06-29 07:28 | NUR ---
Patient noted with large bruise noted to right hip region (on eliquis) no head strike during fall, reports intermittent dizzyness, intermittent thirsty.
[2023-06-29 08:55] LABS: BILIRUBIN,URINE NEGATIVE (Neg); CLARITY,URINE SLIGHTLY CLOUDY (Clear); COLOR,URINE YELLOW (Yellow); GLUCOSE, URINE 100 mg/dl (Neg); KETONES,URINE NEGATIVE (Neg); LEUKOCYTE ESTERASE ,URINE TRACE (Neg); NITRITES, URINE NEGATIVE (Neg); OCCULT BLOOD,URINE TRACE-INTACT (Neg); PH,URINE 5.5 (4.8-8.0); PROTEIN,URINE NEGATIVE (Neg); UROBILINOGEN,URINE 0.2 E.U/dL (0.2-1.0)
[2023-06-29 09:01] LABS: UA COLLECTION TYPE VOIDED
[2023-06-29 09:14] LABS: SQUAMOUS EPITHELIAL CELL,UR MANY /LPF (FEW)
[2023-06-29 09:15] LABS: BACTERIA,URINE 3+ /HPF (Neg); RBC,URINE 0-2 /HPF (0-2)
[2023-06-29 09:55] LABS: BASOPHILS % (AUTO) 0.3 % (0-1); EOSINOPHILS % (AUTO) 0.4 % (0-6); HEMOGLOBIN 7.3 g/dl (12.0-16.0); LYMPHOCYTES # (AUTO) 1.5 X10'3 (1.1-4.8); LYMPHOCYTES % (AUTO) 18.2 % (21-51); MEAN CORPUSCULAR HEMOGLOBIN 28.1 PG (27.0-31.0); MEAN CORPUSCULAR HGB CONC 33.4 g/dL (33.0-36.5); MEAN CORPUSCULAR VOLUME 84.1 FL (78-98); MEAN PLATELET VOLUME 8.2 FL (7.4-10.4); MONOCYTES # (AUTO) 0.6 X10'3 (0-0.9); MONOCYTES % (AUTO) 6.9 % (2-12); NEUTROPHILS # (AUTO) 6.1 X10'3 (1.8-7.7); NEUTROPHILS % (AUTO) 74.2 % (42-75); PLATELET COUNT 284 X10'3 (140-440); RED BLOOD COUNT 2.58 X10'6 (4.20-5.60); RED CELL DISTRIBUTION WIDTH 14.7 % (11.5-14.5); WHITE BLOOD COUNT 8.2 X10'3 (4.5-11.0)
[2023-06-29 09:57] LABS: HEMATOCRIT 21.7 % (35.0-45.0)
[2023-06-29 10:09] LABS: ALANINE AMINOTRANSFERASE 14 U/L (12-78); ALBUMIN 2.5 G/DL (3.4-5.0); ALKALINE PHOSPHATASE 71 IU/L (46-116); ANION GAP 6 (8-16); ASPARTATE AMINO TRANSFERASE 17 U/L (10-37); BILIRUBIN,TOTAL 1.1 MG/DL (0.1-1.0); BLOOD UREA NITROGEN 27 MG/DL (7-18); BUN/CREATININE RATIO 18.4 (10.0-20.0); CHLORIDE 94 MMOL/L (99-107); CREATININE 1.47 MG/DL (0.40-0.90); GLUCOSE 260 MG/DL (70-104); SODIUM 130 MMOL/L (135-145); TOTAL CARBON DIOXIDE 29.6 MMOL/L (24-32); eCRCL 29 ML/MIN; eGFR 35 ML/MIN
[2023-06-29 10:10] LABS: ALBUMIN/GLOBULIN RATIO 0.5 (1.1-1.5); TOTAL PROTEIN 7.1 G/DL (6.4-8.2)
[2023-06-29] MEDS ORDERED: potassium Cl 20 mEq SR tablet PO STA (14:13)
[2023-06-29] MEDS ORDERED: CEPH-585 PO (14:18)
[2023-06-29 14:34] VITALS: BP 149/61; PULSE 67; RESP 16; TEMP 98.1; O2SAT 98
== END 2023-06-29 14:38 | disposition home or self-care (01) ==
LOC: ER 07:01
DX: S70.01XA Contusion of right hip, initial encounter (principal); Z20.822 Contact with and (suspected) exposure to COVID-19; M54.2 Cervicalgia; E78.00 Pure hypercholesterolemia, unspecified; I10 Essential (primary) hypertension; K21.9 Gastro-esophageal reflux disease without esophagitis; E11.9 Type 2 diabetes mellitus without complications; E03.9 Hypothyroidism, unspecified; G89.29 Other chronic pain; M54.9 Dorsalgia, unspecified; Z88.8 Allergy status to other drugs, medicaments and biological substances; Z88.6 Allergy status to analgesic agent; Z79.899 Other long term (current) drug therapy; W19.XXXA Unspecified fall, initial encounter; Y93.89 Activity, other specified; Y92.89 Other specified places as the place of occurrence of the external cause; Y99.8 Other external cause status
CPT/HCPCS: 36415; 73502; 80053; 81001; 85025; 87811; 99284

== ENCOUNTER 2023-08-15 11:18 | Emergency (ER) | payer MEDICARE, MEDICAID ==
[~2023-08-15] VITALS: Ht 165.1 cm; Wt 96.4 kg
[~2023-08-15 11:18] MED LIST changes: +CEPH-585 PO
[2023-08-15 12:05] VITALS: BP 145/91; PULSE 69; RESP 70; TEMP 99; O2SAT 97
[2023-08-15 12:48] LABS: BILIRUBIN,URINE NEGATIVE (Neg); CLARITY,URINE CLEAR (Clear); COLOR,URINE STRAW (Yellow); GLUCOSE, URINE NEGATIVE (Neg); KETONES,URINE NEGATIVE (Neg); LEUKOCYTE ESTERASE ,URINE NEGATIVE (Neg); NITRITES, URINE NEGATIVE (Neg); OCCULT BLOOD,URINE MODERATE (Neg); PROTEIN,URINE 30 mg/dl (Neg); UROBILINOGEN,URINE 0.2 E.U/dL (0.2-1.0)
[2023-08-15 12:50] LABS: BASOPHILS % (AUTO) 0.4 % (0-1); EOSINOPHILS # (AUTO) 0.1 X10'3 (0-0.9); EOSINOPHILS % (AUTO) 0.6 % (0-6); HEMATOCRIT 32.9 % (35.0-45.0); LYMPHOCYTES # (AUTO) 2.5 X10'3 (1.1-4.8); LYMPHOCYTES % (AUTO) 26.2 % (21-51); MEAN CORPUSCULAR HGB CONC 33.3 g/dL (33.0-36.5); MEAN CORPUSCULAR VOLUME 84.1 FL (78-98); MEAN PLATELET VOLUME 7.7 FL (7.4-10.4); MONOCYTES # (AUTO) 0.6 X10'3 (0-0.9); MONOCYTES % (AUTO) 6.2 % (2-12); NEUTROPHILS # (AUTO) 6.3 X10'3 (1.8-7.7); NEUTROPHILS % (AUTO) 66.6 % (42-75); PLATELET COUNT 359 X10'3 (140-440); RED BLOOD COUNT 3.92 X10'6 (4.20-5.60); RED CELL DISTRIBUTION WIDTH 15.7 % (11.5-14.5); WHITE BLOOD COUNT 9.5 X10'3 (4.5-11.0)
[2023-08-15 12:55] LABS: PROTHROMBIN TIME 11.1 SECONDS (9.0-12.0)
[2023-08-15 12:58] LABS: UA COLLECTION TYPE CLN CATCH MIDSTREAM
[2023-08-15 12:59] LABS: ALANINE AMINOTRANSFERASE 15 U/L (12-78); ALBUMIN 3.3 G/DL (3.4-5.0); ALBUMIN/GLOBULIN RATIO 0.6 (1.1-1.5); ALKALINE PHOSPHATASE 89 IU/L (46-116); ANION GAP 6 (8-16); ASPARTATE AMINO TRANSFERASE 15 U/L (10-37); BILIRUBIN,TOTAL 0.4 MG/DL (0.1-1.0); BLOOD UREA NITROGEN 15 MG/DL (7-18); BUN/CREATININE RATIO 11.5 (10.0-20.0); CHLORIDE 95 MMOL/L (99-107); GLUCOSE 196 MG/DL (70-104); POTASSIUM 3.5 MMOL/L (3.5-5.1); SODIUM 128 MMOL/L (135-145); TOTAL CARBON DIOXIDE 27.5 MMOL/L (24-32); TOTAL PROTEIN 8.8 G/DL (6.4-8.2); eCRCL 35 ML/MIN; eGFR 40 ML/MIN
[2023-08-15 12:59] LABS: HYALINE CASTS 0-3 /LPF (NEGATIVE); SQUAMOUS EPITHELIAL CELL,UR MODERATE /LPF (FEW)
[2023-08-15 13:00] LABS: BACTERIA,URINE FEW /HPF (Neg); WBC,URINE 0-4 /HPF (0-4)
[2023-08-15] MEDS ORDERED: HYDR25SU32 RC (14:27)
== END 2023-08-15 15:20 | disposition home or self-care (01) ==
LOC: ER 11:18
DX: K92.2 Gastrointestinal hemorrhage, unspecified (principal); E78.00 Pure hypercholesterolemia, unspecified; I10 Essential (primary) hypertension; K21.9 Gastro-esophageal reflux disease without esophagitis; E03.9 Hypothyroidism, unspecified; Z88.8 Allergy status to other drugs, medicaments and biological substances; Z79.899 Other long term (current) drug therapy; Z79.2 Long term (current) use of antibiotics; Z79.84 Long term (current) use of oral hypoglycemic drugs; Z90.710 Acquired absence of both cervix and uterus; Z98.51 Tubal ligation status
CPT/HCPCS: 36415; 80053; 81001; 85025; 85610; 99283